=== PATIENT | female | born 1970 | race Caucasian/White ===

== ENCOUNTER 2020-05-06 12:46 | Emergency (ER) | payer OTHER ==
[~2020-05-06] VITALS: Ht 172.7 cm; Wt 73.0 kg
[2020-05-06 12:57] VITALS: BP 114/63
[2020-05-06] MEDS ORDERED: HYDR-4353 PO (13:27)
[2020-05-06] MEDS ORDERED: HYDROcodone/acetaminophen 10/325mg tab PO ONE (13:30)
[2020-05-06] MEDS ORDERED: ketorolac trometh. 30mg/ml inj. IM ONE (13:30)
== END 2020-05-06 14:02 | disposition home or self-care (01) ==
LOC: ER 12:47
DX: S49.91XA Unspecified injury of right shoulder and upper arm, initial encounter (principal); S80.11XA Contusion of right lower leg, initial encounter; M25.511 Pain in right shoulder; W22.09XA Striking against other stationary object, initial encounter; Y93.89 Activity, other specified; Y92.018 Other place in single-family (private) house as the place of occurrence of the external cause
CPT/HCPCS: 73030; 96372; 99283; J1885

== ENCOUNTER 2023-07-28 10:36 | Emergency (ER) | payer BC ==
[~2023-07-28] VITALS: Ht 172.7 cm; Wt 69.2 kg
[2023-07-28 10:41] VITALS: BP 106/41; PULSE 75; RESP 16; TEMP 98; O2SAT 99
[2023-07-28] MEDS: orphenadrine citrate 60mg/2ml inj. IM ONE (11:20)
[2023-07-28] MEDS: ibuprofen tablet 400 MG TABLET PO ONE (11:20)
== END 2023-07-28 12:29 | disposition home or self-care (01) ==
LOC: ER 10:36
DX: M79.662 Pain in left lower leg (principal); M25.572 Pain in left ankle and joints of left foot; Z91.040 Latex allergy status; Z90.49 Acquired absence of other specified parts of digestive tract; Z79.899 Other long term (current) drug therapy
CPT/HCPCS: 93971; 96372; 99285; J2360